=== PATIENT | female | born 1955 | race Caucasian/White ===

== ENCOUNTER 2016-04-30 15:55 | Emergency (ER) | payer MEDICARE ==
[~2016-04-30] VITALS: Ht 165.1 cm; Wt 104.3 kg
[~2016-04-30 15:55] MED LIST: AMBIEN10 M1 PO; EFFEXOR XR150 M1 PO; GLUCOTROL10 MG PO; LEVAQUIN750 M1 PO; LIPITOR40 MG PO; NORVASC5 MG PO; SEROQUEL400 M1 PO; ULTRAM50 MG PO; VITAMIN D1000 IU PO
[2016-04-30] MEDS ORDERED: METFORMIN500 MG PO (16:19)
[2016-04-30 16:26] LABS: BASO # 0.1 10*3/uL (0.0-0.1); BASO % 0.7 % (0.0-1.0); EOS # 0.3 10*3/uL (0.0-0.4); EOS % 2.9 % (1.0-4.0); HEMOGLOBIN 13.7 g/dl (12.0-16.0); LYMPH # 2.4 10*3/uL (1.3-4.4); LYMPH % 27.5 % (27.0-41.0); MEAN CORPUSCULAR HGB 29.1 pg (27.0-31.0); MEAN CORPUSCULAR HGB CONC 33.4 g/dl (33.0-37.0); MEAN PLATELET VOLUME 10.9 fl (9.6-12.3); MONO # 0.5 10*3/uL (0.1-1.0); MONO % 5.7 % (3.0-9.0); NEUT # 5.4 10*3/uL (2.3-7.9); NEUT % 62.8 % (47.0-73.0); PLATELET COUNT AUTOMATED 215 10*3/uL (130-400); RED BLOOD COUNT 4.71 10*6/uL (4.10-5.10); RED CELL DISTRI WIDTH 13.3 % (0-14.5); WHITE BLOOD COUNT 8.5 10*3/uL (4.8-10.8)
[2016-04-30 16:42] LABS: ALBUMIN 3.9 gm/dl (3.1-4.5); ALKALINE PHOSPHATASE 110 U/L (45-117); BILIRUBIN, TOTAL 0.3 mg/dl (0.2-1.0); BUN 9 mg/dl (7-24); CARBON DIOXIDE 25 mmol/L (21-32); CHLORIDE 105 mmol/L (98-107); EST GLOM FILT AFRICAN AMERICAN > 60 ml/min; GLUCOSE 181 mg/dL (65-99); POTASSIUM 3.8 mmol/L (3.5-5.1); SGOT/AST 35 IU/L (3-35); SGPT/ALT 48 U/L (12-78); SODIUM 141 mmol/L (136-145); TOTAL PROTEIN 7.3 gm/dL (6.4-8.2)
== END 2016-04-30 16:39 | disposition home or self-care (01) ==
LOC: ED 15:55
PROVIDERS: Registered Nurse
DX: F41.9 Anxiety disorder, unspecified (principal); I10 Essential (primary) hypertension; F43.10 Post-traumatic stress disorder, unspecified; Z79.899 Other long term (current) drug therapy; Z91.041 Radiographic dye allergy status; Z88.5 Allergy status to narcotic agent

== ENCOUNTER 2017-05-13 16:09 | Inpatient (IN) | payer MEDICARE ==
[2017-05-13] VITALS (8 sets, daily range): BP systolic 111–148; BP diastolic 66–83
[~2017-05-13] VITALS: Ht 165.1 cm; Wt 101.6 kg
--- NOTE | ~2017-05-13 | CON ---
[place], [place] REPORT OF CONSULTATION NAME: MALIK ZHENG UNIT #: [id number] ROOM: 502 DOCTOR: VIOLETTA PEARCE MD BIRTHDATE: [birth year] DOS: 05/14/2017 REASON FOR CONSULTATION: Chest pain. HISTORY OF PRESENT ILLNESS: The patient is a 61-year-old patient with history of hypertension, diabetes, non-morbid obesity, presents to Emergency Room for right-sided chest pain intermittently with radiation to her back for the past 1 week. She described the pain as a constant, stabbing pain mostly at rest. No associated nausea, diaphoresis or dizziness. She did have some ____ as well. This pain is intermittent and no aggravating or relieving factors. She is also having some slightly progressive dyspnea on exertion for the past several days. No edema, no orthopnea, no PND, no fever and chills. No nausea, vomiting, diarrhea. No bladder or bowel symptoms, no neurologic symptoms, no headache, no visual symptoms. REVIEW OF SYSTEMS: Review of the 10 systems negative except as mentioned above. PAST MEDICAL HISTORY: Hypertension, diabetes, dyslipidemia, non-morbid, obesity, anxiety, major depression. PAST SURGICAL HISTORY: History of hysterectomy, laminectomy, left breast lumpectomy, right total knee replacement, tubal ligation. SOCIAL HISTORY: The patient does not drink or use illicit drugs, but currently smokes. FAMILY HISTORY: Father , unknown cause. Mother has history of hypertension and heart disease, . ALLERGIES: 1. The patient is allergic to IVP DYE which causes "throat swelling." 1. CODEINE and LATEX. HOME MEDICATIONS: Reviewed. PHYSICAL EXAMINATION: VITAL SIGNS: Reviewed and stable, blood pressure 114/56, pulse 90, respiratory rate 20. GENERAL: The patient is alert, comfortable, no acute distress. HEAD AND NECK: Pupils round, equal. No jaundice. Tongue was moist and pharynx clear. NECK: Supple, no distended neck veins, no carotid bruit. CHEST: Symmetrical, nontender. LUNGS: Clear to auscultation bilaterally. HEART: Regular rhythm, no S3, no palpable thrills. ABDOMEN: Obese, nontender. Bowel sounds normal. EXTREMITIES: Showed 1+ edema. Distal pulses are palpable. SKIN: Warm and dry. No cyanosis, no clubbing. RECTAL: Deferred. GENITOURINARY: Deferred. [place], [place] REPORT OF CONSULTATION NAME: MALIK ZHENG UNIT #: [id number] ROOM: [facility] DOCTOR: PORTIA RING,VIOLETTA BIRTHDATE: [birth year] PSYCHIATRIC: The patient is alert, oriented with good mood and affect. REVIEW OF THE DIAGNOSTIC TESTS: EKG, labs, and imaging studies reviewed. EKG, normal sinus rhythm with poor R-wave progression. IMPRESSION: 1. Chest pain, atypical, myocardial infarction ruled out. 2. Acute diastolic heart failure, stable. 3. Hypertension. 4. Diabetes type 2. 5. Tobacco smoking. 6. Dyslipidemia. 7. Non-morbid obesity. 8. Chronic obstructive pulmonary disease. RECOMMENDATIONS: 1. Currently, she is feeling better. 2. Continue current medications. 3. Exercise nuclear stress test to rule out ischemia due to chest pain and CAD risk factors. 4. CHF, appears to be completely resolved now. 5. Risk factor modification, to quit smoking, diet, exercise and weight loss discussed. 6. Further recommendation based on her stress test and 2D echo. VIOLETTA PEARCE MD CM:CONSTR:REPORT OF CONSULTATION [id number] 05/15/17 1723 interface
--- NOTE | ~2017-05-13 | ST ---
[place], [place] EXERCISE STRESS TEST REPORT NAME: MALIK ZHENG UNIT #: [id number] ROOM: [facility] DOCTOR: PORTIA RING,VIOLETTA BIRTHDATE: [birth year] DOS: 05/14/2017 EXERCISE NUCLEAR STRESS TEST REASON FOR TEST: Chest pain. PHYSICAL EXAMINATION: NECK: Supple. LUNGS: Clear anteriorly. HEART: Regular rhythm. PROTOCOL: Bryce protocol. Total stress time 3 minutes. Maximum heart was 139, which is 87% target heart rate. Peak blood pressure 132/74, adequate response. SYMPTOMS: The patient is chest pain free, developed shortness of breath. ELECTROCARDIOGRAM: Resting EKG was sinus rhythm. Stress EKG showed no ischemia, no arrhythmias. CONCLUSION: Clinically, the patient is chest pain free and EKG showed no ischemia. POST-STRESS COMPLICATIONS: None. VIOLETTA PEARCE MD CM:STRESS:EXERCISE STRESS TEST REPORT [id number] VIOLETTA PEARCE MD
[~2017-05-13 16:09] MED LIST changes: +METFORMIN500 MG PO
[2017-05-13 16:35] LABS: BASO # 0.1 10*3/uL (0.0-0.1); BASO % 0.6 % (0.0-1.0); EOS # 0.2 10*3/uL (0.0-0.4); HEMOGLOBIN 13.6 g/dl (12.0-16.0); LYMPH # 1.6 10*3/uL (1.3-4.4); LYMPH % 18.9 % (27.0-41.0); MEAN CORPUSCULAR HGB 29.2 pg (27.0-31.0); MEAN CORPUSCULAR HGB CONC 33.2 g/dl (33.0-37.0); MEAN PLATELET VOLUME 10.4 fl (9.6-12.3); MONO # 0.4 10*3/uL (0.1-1.0); MONO % 4.2 % (3.0-9.0); NEUT # 6.3 10*3/uL (2.3-7.9); NEUT % 73.9 % (47.0-73.0); PLATELET COUNT AUTOMATED 222 10*3/uL (130-400); RED BLOOD COUNT 4.66 10*6/uL (4.10-5.10); RED CELL DISTRI WIDTH 13.3 % (0-14.5); WHITE BLOOD COUNT 8.5 10*3/uL (4.8-10.8)
[2017-05-13] MEDS ORDERED: METFORMIN1000 MG PO (16:40)
[2017-05-13] MEDS ORDERED: FLOVENT HFA12 GM INH (16:42)
[2017-05-13 16:45] LABS: ACT PARTIAL THROMBO TIME 24.4 SECONDS (20.8-31.5)
[2017-05-13 16:53] LABS: ALBUMIN 3.5 gm/dl (3.1-4.5); ALKALINE PHOSPHATASE 119 U/L (45-117); BUN 9 mg/dl (7-24); CHLORIDE 102 mmol/L (98-107); CREATININE 0.83 mg/dL (0.55-1.02); POTASSIUM 4.2 mmol/L (3.5-5.1); SGOT/AST 15 IU/L (3-35); SGPT/ALT 32 U/L (12-78); SODIUM 136 mmol/L (136-145); TOTAL PROTEIN 7.2 gm/dL (6.4-8.2)
[2017-05-13 16:54] LABS: TROPONIN I < 0.015 ng/ml (<0.045)
[2017-05-14] VITALS: BP 114/55
[2017-05-14 06:38] LABS: BASO # 0.1 10*3/uL (0.0-0.1); BASO % 0.6 % (0.0-1.0); EOS # 0.3 10*3/uL (0.0-0.4); EOS % 3.3 % (1.0-4.0); HEMATOCRIT 41.9 % (37.0-47.0); HEMOGLOBIN 13.7 g/dl (12.0-16.0); LYMPH # 2.9 10*3/uL (1.3-4.4); LYMPH % 35.5 % (27.0-41.0); MEAN CELL VOLUME 88.2 fl (81.0-99.0); MEAN CORPUSCULAR HGB 28.8 pg (27.0-31.0); MEAN CORPUSCULAR HGB CONC 32.7 g/dl (33.0-37.0); MEAN PLATELET VOLUME 10.7 fl (9.6-12.3); MONO # 0.5 10*3/uL (0.1-1.0); MONO % 5.4 % (3.0-9.0); NEUT # 4.5 10*3/uL (2.3-7.9); NEUT % 54.7 % (47.0-73.0); PLATELET COUNT AUTOMATED 240 10*3/uL (130-400); RED BLOOD COUNT 4.75 10*6/uL (4.10-5.10); RED CELL DISTRI WIDTH 13.3 % (0-14.5); WHITE BLOOD COUNT 8.3 10*3/uL (4.8-10.8)
[2017-05-14 07:08] LABS: ALBUMIN 3.4 gm/dl (3.1-4.5); ALKALINE PHOSPHATASE 111 U/L (45-117); BUN 11 mg/dl (7-24); CHLORIDE 103 mmol/L (98-107); CHOLESTEROL 150 mg/dL (<200); CREATININE 0.76 mg/dL (0.55-1.02); HDL CHOLESTEROL 42 mg/dl (40-60); LDL CHOLESTEROL 57 mg/dL (9-159); POTASSIUM 3.5 mmol/L (3.5-5.1); SGOT/AST 17 IU/L (3-35); SGPT/ALT 31 U/L (12-78); SODIUM 140 mmol/L (136-145); TOTAL PROTEIN 6.9 gm/dL (6.4-8.2); TRIGLYCERIDES 255 mg/dl (<150); VLDL CHOLESTEROL 51 mg/dL (6-40)
[2017-05-14 07:38] LABS: ACT PARTIAL THROMBO TIME 23.5 SECONDS (20.8-31.5)
[2017-05-14 08:00] VITALS: BP 100/46
[2017-05-14 12:00] VITALS: BP 104/54
== END 2017-05-14 17:37 | disposition home or self-care (01) | DRG 292 ==
LOC: ED 16:09 → 5E 17:58 → EDHOLD 17:58 → 5E 18:00
PROVIDERS: Emergency Medicine; Internal Medicine
PROC: 4A02XM4 Measurement of Cardiac Total Activity, External Approach (ICD-10-PCS; principal; 2017-05-14)
DX: I11.0 Hypertensive heart disease with heart failure (principal); F33.9 Major depressive disorder, recurrent, unspecified; E11.8 Type 2 diabetes mellitus with unspecified complications; I50.31 Acute diastolic (congestive) heart failure; F41.0 Panic disorder [episodic paroxysmal anxiety]; E78.5 Hyperlipidemia, unspecified; F43.10 Post-traumatic stress disorder, unspecified; J44.9 Chronic obstructive pulmonary disease, unspecified; E66.9 Obesity, unspecified; K21.9 Gastro-esophageal reflux disease without esophagitis; R00.0 Tachycardia, unspecified; F17.200 Nicotine dependence, unspecified, uncomplicated; Z96.651 Presence of right artificial knee joint; R07.89 Other chest pain; Z68.37 Body mass index [BMI] 37.0-37.9, adult; Z88.5 Allergy status to narcotic agent; Z87.01 Personal history of pneumonia (recurrent); Z90.710 Acquired absence of both cervix and uterus; Z91.041 Radiographic dye allergy status; Z91.040 Latex allergy status; Z71.6 Tobacco abuse counseling; Z79.84 Long term (current) use of oral hypoglycemic drugs; Z79.899 Other long term (current) drug therapy; Z83.3 Family history of diabetes mellitus; Z82.49 Family history of ischemic heart disease and other diseases of the circulatory system; Z80.9 Family history of malignant neoplasm, unspecified

== ENCOUNTER → 2017-05-30 | Outpatient (CLI) | payer SELFPAY ==
[~2017-05-30] MED LIST changes: +FLOVENT HFA12 GM INH; +METFORMIN1000 MG PO
== END | disposition home or self-care (01) ==
LOC: US 10:00
DX: K76.0 Fatty (change of) liver, not elsewhere classified (principal); K82.4 Cholesterolosis of gallbladder

== ENCOUNTER → 2018-01-01 | Outpatient (CLI) | payer OTHER | LOC: MAMMO 14:30 | DX: Z12.31 Encounter for screening mammogram for malignant neoplasm of breast (principal) ==

== ENCOUNTER 2018-07-26 11:47 | Emergency (ER) | payer OTHER ==
[~2018-07-26] VITALS: Wt 72.6 kg
== END 2018-07-26 12:43 | disposition home or self-care (01) ==
LOC: ED 11:47
DX: F43.9 Reaction to severe stress, unspecified (principal); F32.9 Major depressive disorder, single episode, unspecified; J44.9 Chronic obstructive pulmonary disease, unspecified; E11.9 Type 2 diabetes mellitus without complications; E78.5 Hyperlipidemia, unspecified; I11.0 Hypertensive heart disease with heart failure; I50.9 Heart failure, unspecified; E66.9 Obesity, unspecified; F17.200 Nicotine dependence, unspecified, uncomplicated; Z68.30 Body mass index [BMI] 30.0-30.9, adult; Z91.041 Radiographic dye allergy status; Z88.5 Allergy status to narcotic agent; Z91.040 Latex allergy status; Z79.899 Other long term (current) drug therapy; Z79.84 Long term (current) use of oral hypoglycemic drugs

== ENCOUNTER 2018-11-04 12:44 | Emergency (ER) | payer OTHER ==
[~2018-11-04] VITALS: Ht 165.1 cm; Wt 99.8 kg
--- NOTE | ~2018-11-04 | EKG ---
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
[2018-11-04 13:42] LABS: BASO % 0.4 % (0.0-1.0); EOS # 0.3 10*3/uL (0.0-0.4); EOS % 3.2 % (1.0-4.0); HEMATOCRIT 39.6 % (37.0-47.0); HEMOGLOBIN 12.9 g/dl (12.0-16.0); LYMPH # 1.9 10*3/uL (1.3-4.4); LYMPH % 19.3 % (27.0-41.0); MEAN CELL VOLUME 90.6 fl (81.0-99.0); MEAN CORPUSCULAR HGB 29.5 pg (27.0-31.0); MEAN CORPUSCULAR HGB CONC 32.6 g/dl (33.0-37.0); MEAN PLATELET VOLUME 10.3 fl (9.6-12.3); MONO # 0.5 10*3/uL (0.1-1.0); MONO % 5.4 % (3.0-9.0); NEUT # 6.9 10*3/uL (2.3-7.9); NEUT % 71.4 % (47.0-73.0); PLATELET COUNT AUTOMATED 229 10*3/uL (130-400); RED BLOOD COUNT 4.37 10*6/uL (4.10-5.10); RED CELL DISTRI WIDTH 13.6 % (0-14.5); WHITE BLOOD COUNT 9.7 10*3/uL (4.8-10.8)
[2018-11-04 13:56] LABS: ACT PARTIAL THROMBO TIME 26.9 SECONDS (20.0-32.1); INTERNATIONAL NORM RATIO 0.9 (2.0-3.5)
[2018-11-04 14:08] LABS: ALBUMIN 3.7 gm/dl (3.1-4.5); ALKALINE PHOSPHATASE 113 U/L (45-117); BUN 19 mg/dl (7-24); CHLORIDE 105 mmol/L (98-107); CREATININE 0.88 mg/dL (0.55-1.02); POTASSIUM 3.8 mmol/L (3.5-5.1); SGOT/AST 40 IU/L (3-35); SGPT/ALT 45 U/L (12-78); SODIUM 137 mmol/L (136-145); TOTAL PROTEIN 7.2 gm/dL (6.4-8.2)
[2018-11-04 14:13] LABS: TROPONIN I < 0.015 ng/ml (<0.045)
== END 2018-11-04 15:26 | disposition home or self-care (01) ==
LOC: ED 12:44
PROVIDERS: Emergency Medicine
DX: M54.2 Cervicalgia (principal); R51 Headache; M25.511 Pain in right shoulder; M25.512 Pain in left shoulder; F17.200 Nicotine dependence, unspecified, uncomplicated; J44.9 Chronic obstructive pulmonary disease, unspecified; E78.5 Hyperlipidemia, unspecified; I11.0 Hypertensive heart disease with heart failure; I50.9 Heart failure, unspecified; E66.9 Obesity, unspecified; E11.9 Type 2 diabetes mellitus without complications; Z68.39 Body mass index [BMI] 39.0-39.9, adult; Z90.710 Acquired absence of both cervix and uterus; Z98.51 Tubal ligation status; Z98.890 Other specified postprocedural states; Z91.041 Radiographic dye allergy status; Z88.5 Allergy status to narcotic agent; Z91.040 Latex allergy status; Z79.899 Other long term (current) drug therapy

== ENCOUNTER 2020-06-08 14:21 | Inpatient (IN) | payer OTHER ==
[~2020-06-08] VITALS: Ht 165.1 cm; Wt 95.8 kg
[2020-06-08 14:38] VITALS: BP 124/72
[2020-06-08 15:03] LABS: BASO % 0.5 % (0.0-1.0); EOS # 0.1 10*3/uL (0.0-0.4); EOS % 1.1 % (1.0-4.0); HEMATOCRIT 43.2 % (37.0-47.0); LYMPH # 1.7 10*3/uL (1.3-4.4); LYMPH % 20.3 % (27.0-41.0); MEAN CELL VOLUME 89.3 fl (81.0-99.0); MEAN CORPUSCULAR HGB 28.9 pg (27.0-31.0); MEAN CORPUSCULAR HGB CONC 32.4 g/dl (33.0-37.0); MEAN PLATELET VOLUME 10.6 fl (9.6-12.3); MONO # 0.4 10*3/uL (0.1-1.0); MONO % 4.7 % (3.0-9.0); NEUT # 5.9 10*3/uL (2.3-7.9); NEUT % 73.2 % (47.0-73.0); PLATELET COUNT AUTOMATED 234 10*3/uL (130-400); RED BLOOD COUNT 4.84 10*6/uL (4.10-5.10); RED CELL DISTRI WIDTH 13.6 % (0-14.5); WHITE BLOOD COUNT 8.1 10*3/uL (4.8-10.8)
[2020-06-08 15:18] LABS: ALBUMIN 3.7 gm/dl (3.1-4.5); ALKALINE PHOSPHATASE 112 U/L (45-117); BUN 9 mg/dl (7-24); CHLORIDE 106 mmol/L (98-107); CREATININE 0.88 mg/dL (0.55-1.02); LIPASE 90 U/L (73-393); POTASSIUM 3.9 mmol/L (3.5-5.1); SGOT/AST 17 IU/L (3-35); SGPT/ALT 31 U/L (12-78); SODIUM 138 mmol/L (136-145); TOTAL PROTEIN 7.6 gm/dL (6.4-8.2)
[2020-06-08 15:22] LABS: TROPONIN I < 0.015 ng/ml (<0.045)
[2020-06-08 15:46] VITALS: BP 136/66
[2020-06-08 16:43] VITALS: BP 115/58
[2020-06-08 18:34] VITALS: BP 115/50
[2020-06-08 21:47] VITALS: BP 157/83
[2020-06-08 22:00] VITALS: BP 151/88
[2020-06-08] MEDS ORDERED: MELATONIN10 M3 PO (22:20)
[2020-06-08] MEDS ORDERED: OZEMPIC1 MG/0.71 SQ (22:21)
[2020-06-08] MEDS ORDERED: FISH OIL 1,0001 EAC4 PO (22:21)
[2020-06-08] MEDS ORDERED: PRAZOSIN HCL2 MG PO (22:22)
[2020-06-08] MEDS ORDERED: SEROQUEL400 M1 PO (22:23)
[2020-06-09] VITALS: BP 151/88
[2020-06-09 06:22] LABS: BASO % 0.5 % (0.0-1.0); EOS # 0.2 10*3/uL (0.0-0.4); EOS % 2.8 % (1.0-4.0); HEMATOCRIT 39.8 % (37.0-47.0); LYMPH # 3.2 10*3/uL (1.3-4.4); LYMPH % 37.4 % (27.0-41.0); MEAN CELL VOLUME 89.2 fl (81.0-99.0); MEAN CORPUSCULAR HGB 28.9 pg (27.0-31.0); MEAN CORPUSCULAR HGB CONC 32.4 g/dl (33.0-37.0); MEAN PLATELET VOLUME 10.5 fl (9.6-12.3); MONO # 0.6 10*3/uL (0.1-1.0); MONO % 6.9 % (3.0-9.0); NEUT # 4.5 10*3/uL (2.3-7.9); NEUT % 52.1 % (47.0-73.0); PLATELET COUNT AUTOMATED 233 10*3/uL (130-400); RED BLOOD COUNT 4.46 10*6/uL (4.10-5.10); RED CELL DISTRI WIDTH 13.5 % (0-14.5); WHITE BLOOD COUNT 8.6 10*3/uL (4.8-10.8)
[2020-06-09 06:34] LABS: BUN 11 mg/dl (7-24); CHLORIDE 107 mmol/L (98-107); CHOLESTEROL 131 mg/dL (<200); CREATININE 0.67 mg/dL (0.55-1.02); LDL CHOLESTEROL 55 mg/dL (9-159); POTASSIUM 3.5 mmol/L (3.5-5.1); SODIUM 140 mmol/L (136-145); TRIGLYCERIDES 185 mg/dl (<150)
[2020-06-09 07:45] VITALS: BP 118/66
[2020-06-09 11:43] VITALS: BP 125/59
[2020-06-09 16:00] VITALS: BP 124/56
[2020-06-09 20:00] VITALS: BP 134/57
[2020-06-10] VITALS: BP 127/61
[2020-06-10 08:00] VITALS: BP 129/64
[2020-06-10 16:00] VITALS: BP 138/75
== END 2020-06-10 18:13 | disposition home or self-care (01) | DRG 206 ==
LOC: ED 14:21 → 4E 17:18 → EDHOLD 17:18 → 4E 21:15
PROVIDERS: Emergency Medicine; Student in an Organized Health Care Education/Training Program; ADMIT Internal Medicine; ATTEND Internal Medicine
PROC: 4A02XM4 Measurement of Cardiac Total Activity, External Approach (ICD-10-PCS; principal; 2020-06-10)
PROC: 3E073KZ Introduction of Other Diagnostic Substance into Coronary Artery, Percutaneous Approach (ICD-10-PCS; 2020-06-10)
DX: M94.0 Chondrocostal junction syndrome [Tietze] (principal); E87.2 Acidosis; J91.8 Pleural effusion in other conditions classified elsewhere; F41.0 Panic disorder [episodic paroxysmal anxiety]; F32.9 Major depressive disorder, single episode, unspecified; F41.1 Generalized anxiety disorder; Z96.651 Presence of right artificial knee joint; G89.4 Chronic pain syndrome; E78.5 Hyperlipidemia, unspecified; I10 Essential (primary) hypertension; E66.9 Obesity, unspecified; E11.65 Type 2 diabetes mellitus with hyperglycemia; J43.9 Emphysema, unspecified; F43.10 Post-traumatic stress disorder, unspecified; F17.210 Nicotine dependence, cigarettes, uncomplicated; Z88.6 Allergy status to analgesic agent; Z83.3 Family history of diabetes mellitus; Z82.49 Family history of ischemic heart disease and other diseases of the circulatory system; Z91.041 Radiographic dye allergy status; Z91.038 Other insect allergy status; Z90.710 Acquired absence of both cervix and uterus; Z98.51 Tubal ligation status; Z71.6 Tobacco abuse counseling; Z79.899 Other long term (current) drug therapy; Z68.35 Body mass index [BMI] 35.0-35.9, adult

== ENCOUNTER → 2020-09-02 | Outpatient (CLI) | payer OTHER ==
[~2020-09-02] MED LIST changes: +FISH OIL 1,0001 EAC4 PO; +MELATONIN10 M3 PO; +OZEMPIC1 MG/0.71 SQ; +PRAZOSIN HCL2 MG PO
== END | disposition home or self-care (01) ==
LOC: RAD 13:30 → CT 14:00
PROVIDERS: ATTEND Nurse Practitioner Family
DX: M85.89 Other specified disorders of bone density and structure, multiple sites (principal); J98.11 Atelectasis; R91.8 Other nonspecific abnormal finding of lung field; K74.1 Hepatic sclerosis; Z72.0 Tobacco use; Z78.0 Asymptomatic menopausal state

== ENCOUNTER 2021-05-23 17:58 | Emergency (ER) | payer OTHER ==
[2021-05-23] MEDS ORDERED: METHOCARBAMOL500 M1 PO (19:12)
== END 2021-05-23 19:30 | disposition home or self-care (01) ==
LOC: ED 17:58
DX: G89.29 Other chronic pain (principal); M54.50 Low back pain, unspecified; Z79.899 Other long term (current) drug therapy; Z98.51 Tubal ligation status; Z90.710 Acquired absence of both cervix and uterus; Z98.890 Other specified postprocedural states; Z87.891 Personal history of nicotine dependence

== ENCOUNTER → 2021-07-14 | Outpatient (CLI) | payer OTHER ==
[~2021-07-14] MED LIST changes: +METHOCARBAMOL500 M1 PO
== END ==
LOC: US 14:00
PROVIDERS: ATTEND Nurse Practitioner Family
DX: I65.23 Occlusion and stenosis of bilateral carotid arteries (principal); G45.9 Transient cerebral ischemic attack, unspecified; E04.1 Nontoxic single thyroid nodule

== ENCOUNTER → 2021-08-08 | Outpatient (CLI) | payer OTHER | END | disposition home or self-care (01) | LOC: CARD 08:30 | PROVIDERS: ATTEND Nurse Practitioner Family | DX: I35.8 Other nonrheumatic aortic valve disorders (principal) ==

== ENCOUNTER → 2021-08-29 | Outpatient (CLI) | payer OTHER | END | disposition home or self-care (01) | LOC: US 13:30 | PROVIDERS: ATTEND Internal Medicine | DX: E04.2 Nontoxic multinodular goiter (principal) ==

== ENCOUNTER → 2021-11-01 | Outpatient (CLI) | payer OTHER | END | disposition home or self-care (01) | LOC: CT 13:48 | PROVIDERS: ATTEND Urology | DX: N28.1 Cyst of kidney, acquired (principal); N39.0 Urinary tract infection, site not specified; J98.11 Atelectasis; R31.9 Hematuria, unspecified; R91.1 Solitary pulmonary nodule; K57.30 Diverticulosis of large intestine without perforation or abscess without bleeding ==

== ENCOUNTER 2022-07-27 14:11 | Emergency (ER) | payer OTHER ==
[~2022-07-27] VITALS: Ht 167.6 cm; Wt 95.7 kg
== END 2022-07-27 17:05 | disposition left against medical advice (07) ==
LOC: ED 14:11
DX: K59.00 Constipation, unspecified (principal); Z53.21 Procedure and treatment not carried out due to patient leaving prior to being seen by health care provider